=== PATIENT | female | born 1940 | race Caucasian/White ===

== ENCOUNTER → 2017-05-24 | Outpatient (CLI) | payer MEDICARE, BC | LOC: MC.RAD 14:20 | DX: Z12.31 Encounter for screening mammogram for malignant neoplasm of breast (principal) ==

== ENCOUNTER 2017-07-07 19:54 | Emergency (ER) | payer MEDICARE, BC ==
[~2017-07-07] VITALS: Ht 162.6 cm; Wt 76.8 kg
[2017-07-07 20:11] VITALS: TEMP 98.3
[2017-07-07] MEDS ORDERED: CLARITIN 1010 MG/TAB PO (21:48)
[2017-07-07] MEDS ORDERED: ACID REDUCER PO (21:49)
[2017-07-07 22:47] VITALS: BP 148/78; PULSE 65
== END 2017-07-07 22:47 | disposition home or self-care (01) ==
LOC: COL.ER 19:54
DX: S61.511A Laceration without foreign body of right wrist, initial encounter (principal); W25.XXXA Contact with sharp glass, initial encounter; W45.8XXA Other foreign body or object entering through skin, initial encounter; Y92.009 Unspecified place in unspecified non-institutional (private) residence as the place of occurrence of the external cause

== ENCOUNTER 2017-07-18 07:57 | Emergency (ER) | payer MEDICARE, BC ==
[~2017-07-18 07:57] MED LIST: ACID REDUCER PO; CLARITIN 1010 MG/TAB PO
[2017-07-18 08:08] VITALS: BP 127/61; PULSE 74; TEMP 98.5
== END 2017-07-18 08:20 | disposition home or self-care (01) ==
LOC: COL.ER 07:57
DX: S61.511D Laceration without foreign body of right wrist, subsequent encounter (principal); X58.XXXD Exposure to other specified factors, subsequent encounter

== ENCOUNTER → 2018-06-27 | Outpatient (CLI) | payer MEDICARE, BC | LOC: MC.RAD 11:00 | DX: Z12.31 Encounter for screening mammogram for malignant neoplasm of breast (principal) ==

== ENCOUNTER → 2019-07-02 | Outpatient (CLI) | payer MEDICARE, BC | LOC: MC.RAD 08:15 | DX: Z12.31 Encounter for screening mammogram for malignant neoplasm of breast (principal) ==

== ENCOUNTER 2020-06-01 12:58 | Emergency (ER) | payer MEDICARE, BC ==
[~2020-06-01] VITALS: Ht 162.6 cm; Wt 74.5 kg
[2020-06-01 13:13] VITALS: TEMP 98.3
[2020-06-01 15:22] LABS: COLLECTION METHOD CLEAN CATCH
[2020-06-01 15:26] LABS: BASO % 0.5 % (0.0-2.0); EOS # 0.1 (0.0-0.7); EOS % 1.1 % (0-4.0); GRAN # 3.7 (1.4-6.5); GRAN % 65.4 % (42.2-75.2); HEMATOCRIT 40.4 % (37.0-47.0); HEMOGLOBIN 13.2 g/dl (12.5-16.0); LYMPH # 1.3 (1.2-3.4); LYMPH % 22.9 % (20.0-51.0); MEAN CELL VOLUME 95 fl (80.0-100.0); MEAN CORPUSCULAR HEMOGLOBIN 31 pg (27.0-31.0); MEAN CORPUSCULAR HGB CONC 33 g/dl (33.0-37.0); MONO # 0.6 (0.1-0.6); MONO % 9.7 % (1.7-9.3); PLATELET COUNT 190 K/mm3 (130-400); RED BLOOD COUNT 4.24 M/mm3 (4.10-5.30)
[2020-06-01 15:32] LABS: PH 6 (5-8); SQUAMOUS EPITHELIAL 0-2 /hpf; URINE APPEARANCE Clear; URINE BACTERIA None Seen /hpf; URINE BILIRUBIN Negative (NEGATIVE); URINE BLOOD Negative (NEGATIVE); URINE COLOR Straw; URINE GLUCOSE Negative (NEGATIVE); URINE KETONE Negative (NEGATIVE); URINE LEUKOCYTE ESTERASE Trace (NEGATIVE); URINE NITRATE Negative (NEGATIVE); URINE PROTEIN(semi-quant) Negative (NEGATIVE); URINE RBC 0-2 /hpf; URINE UROBILINOGEN Negative (NEGATIVE)
[2020-06-01 15:38] LABS: ALBUMIN 4.4 gm/dL (3.5-5.0); BILIRUBIN,TOTAL 0.6 mg/dL (0.0-1.0); CALCIUM 9.9 mg/dL (8.4-10.2); CREATININE, serum 0.79 (0.52-1.25); POTASSIUM 4.2 mmol/L (3.4-5.0); TOTAL PROTEIN 7.8 gm/dL (6.4-8.2)
[2020-06-01 15:54] LABS: PROLACTIN 16.3 ng/mL (3.0-18.6)
[2020-06-01 16:50] VITALS: BP 148/70; PULSE 66
== END 2020-06-01 16:52 | disposition home or self-care (01) ==
LOC: COL.ER 12:58
PROVIDERS: Family Medicine
DX: R41.3 Other amnesia (principal); Z88.2 Allergy status to sulfonamides

== ENCOUNTER → 2020-08-05 | Outpatient (CLI) | payer MEDICARE, BC | END | disposition still patient (30) | LOC: MC.RAD 08:00 | DX: Z12.31 Encounter for screening mammogram for malignant neoplasm of breast (principal); Z78.0 Asymptomatic menopausal state ==

== ENCOUNTER → 2021-09-23 | Outpatient (CLI) | payer MEDICARE, BC | LOC: MC.RAD 14:03 | DX: Z12.31 Encounter for screening mammogram for malignant neoplasm of breast (principal) ==

== ENCOUNTER → 2022-11-29 | Outpatient (CLI) | payer MEDICARE, BC | LOC: MC.RAD 11-01 10:45 | DX: Z12.31 Encounter for screening mammogram for malignant neoplasm of breast (principal) ==

== ENCOUNTER → 2024-03-12 | Outpatient (CLI) | payer MEDICARE, BC | LOC: MC.RAD 09:00 | DX: Z12.31 Encounter for screening mammogram for malignant neoplasm of breast (principal) ==